=== PATIENT | female | born 1940 | race Caucasian/White ===

== ENCOUNTER 2017-10-23 10:04 | Emergency (ER) | payer MEDICARE ==
[~2017-10-23] VITALS: Ht 149.9 cm; Wt 96.6 kg
[~2017-10-23 10:04] MED LIST: ASPIR-TRIN325 MG PO; COREG25 MG PO; IMDUR30 MG PO; LASIX20 MG PO; LIPITOR20 MG PO; NITROGLYCERIN0.4 MG SL; TIROSINT88 MCG PO; VASOTEC5 MG PO
[2017-10-23] MEDS ORDERED: LIDOCAINE 1% W/EPINEPHRINE 20 ML VIAL INJ ONE (10:45)
== END 2017-10-23 11:30 | disposition home or self-care (01) ==
LOC: ER 10:04
DX: L02.212 Cutaneous abscess of back [any part, except buttock and flank] (principal)
CPT/HCPCS: 99284